=== PATIENT | male | born 1960 | race Caucasian/White ===

== ENCOUNTER 2019-08-08 08:29 | Day surgery (SDC) | payer OTHER ==
[~2019-08-08 08:29] MED LIST: Buffered Lidocaine 1% SYRIN* 1 ML/SYRINGE INTRADERM ONE; mitoMYcin 0.2 MG (0.02%) in Sterile Water for Inj* 1 ML OPHTHALMIC SCH
[2019-08-08] MEDS ORDERED: Midazolam* 1 MG/ML 2 ML VIAL (2 MG) ONE ×2 (10:38→10:57)
[2019-08-08] MEDS ORDERED: Lidocaine 1% MPF ** 5 ML VIAL ONE (11:04)
[2019-08-08] MEDS ORDERED: Povidone Iodine 5% OPTH* 30 ML BTL ONE (11:04)
[2019-08-08] MEDS ORDERED: Proparacaine 0.5% OPHTH.SOL* 15 ML BTL ONE (11:04)
[2019-08-08] MEDS ORDERED: acetaZOLAMIDE TAB* 250 MG ONE (11:04)
[2019-08-08] MEDS ORDERED: Cyclopentolate 1% OPTH.SOL* 2 ML BTL ONE (11:04)
[2019-08-08] MEDS ORDERED: Lidocaine 2% w/ EPI 1:200,000* 20 ML SDV VIAL ONE (11:04)
[2019-08-08] MEDS ORDERED: Phenylephrine OPHTH SOL 2.5%* 2 ML ONE (11:04)
[2019-08-08] MEDS ORDERED: Neomycin/Polymy/Dex OPTH.SUSP* MAXITROL 0.1% 5 ML ONE (11:04)
[2019-08-08] MEDS ORDERED: Ketorolac 0.5% OPHTH (NF) 0.5 % 5 ML BTL ONE (11:04)
[2019-08-08 11:45] VITALS: BP 111/69
[2019-08-08] MEDS ORDERED: BSS OPTH.SOL* BTL ONE (12:05)
--- NOTE | 2019-08-08 16:02 | OP ---
DATE OF OPERATION: 08/08/19 [facility] DATE OF : 62 SURGEON: Nicolas Saab M.D. PREOPERATIVE DIAGNOSIS: Cataract and glaucoma, left eye POSTOPERATIVE DIAGNOSIS: Cataract and glaucoma, left eye OPERATIVE PROCEDURE: Extracapsular cataract extraction with intraocular lens implant and iStent left. DESCRIPTION OF PROCEDURE: The patient was brought to the operating room after being given 1/2% Alcaine with epinephrine drops in the preoperative area. The eye was prepped and draped in the usual sterile fashion. Sterile drape and eyelid speculum were placed. Again, topical 1/2% Alcaine with epinephrine was given. A paracentesis incision was made at the 3 o'clock position with the No.75 blade. Clear cornea incision 2.2 x 2.2-mm was created at the 6 o'clock position starting at the anterior limbus using the 2.2-mm keratome. The anterior chamber was irrigated with 0.4 mL of 1% non-preservative intracameral lidocaine and filled with DisCoVisc. A capsulorrhexis was completed using the cystotome and the Utrata forceps. Hydrodissection was performed with balanced salt solution. The lens nucleus was removed with the Phacoemulsification handpiece without incident. Cortex was removed with the irrigation-aspiration handpiece. The capsular bag was re-inflated using DisCoVisc and an [id number] 13 implant was inserted with the shooter followed by an iStent inject inserted at the 8 o'clock and 10 o'clock position with each shooter. The irrigation- aspiration handpiece was used to remove all residual DisCoVisc. The eye was refilled with balanced salt solution and the wound checked and found to be watertight. Topical Maxitrol drops were given. [id number]/[facility] #: [id number] MTDD
== END 2019-08-08 11:36 | disposition home or self-care (01) ==
LOC: OREAST 08:29
PROVIDERS: ATTEND Specialist
DX: H25.812 Combined forms of age-related cataract, left eye (principal); H40.1122 Primary open-angle glaucoma, left eye, moderate stage; H44.23 Degenerative myopia, bilateral; E11.9 Type 2 diabetes mellitus without complications; Z79.84 Long term (current) use of oral hypoglycemic drugs
CPT/HCPCS: A9270-GY; C1783; J2250; J9280; V2632

== ENCOUNTER 2019-10-03 11:25 | Day surgery (SDC) | payer OTHER ==
[~2019-10-03 11:25] MED LIST changes: +Cyclopentolate 1% OPTH.SOL* 2 ML BTL ONE; +Ketorolac 0.5% OPHTH (NF) 0.5 % 5 ML BTL ONE; +Lidocaine 1% MPF ** 5 ML VIAL ONE; +Lidocaine 2% w/ EPI 1:200,000* 20 ML SDV VIAL ONE; +Neomycin/Polymy/Dex OPTH.SUSP* MAXITROL 0.1% 5 ML ONE; +Phenylephrine OPHTH SOL 2.5%* 2 ML ONE; +Povidone Iodine 5% OPTH* 30 ML BTL ONE; +Proparacaine 0.5% OPHTH.SOL* 15 ML BTL ONE; +acetaZOLAMIDE TAB* 250 MG ONE; -mitoMYcin 0.2 MG (0.02%) in Sterile Water for Inj* 1 ML OPHTHALMIC SCH
[2019-10-03] MEDS ORDERED: Midazolam* 1 MG/ML 2 ML VIAL (2 MG) ONE (14:40)
[2019-10-03 16:01] VITALS: BP 127/78
--- NOTE | 2019-10-03 21:16 | OP ---
DATE OF OPERATION: 10/03/19 [facility] DATE OF : 62 SURGEON: Nicolas Saab MD PREOPERATIVE DIAGNOSIS: Cataract right eye. POSTOPERATIVE DIAGNOSIS: Cataract right eye. OPERATIVE PROCEDURE: Extracapsular cataract extraction with intraocular lens implant right eye. DESCRIPTION OF PROCEDURE: The patient was brought to the operating room after being given 1/2% Alcaine with epinephrine drops in the preoperative area. The eye was prepped and draped in the usual sterile fashion. Sterile drape and eyelid speculum were placed. Again, topical 1/2% Alcaine with epinephrine was given. A paracentesis incision was made at the 9 o'clock position with the No.75 blade. Clear cornea incision 2.2 x 2.2-mm was created at the 12 o'clock position starting at the anterior limbus using the 2.2-mm keratome. The anterior chamber was irrigated with 0.4 mL of 1% non-preservative intracameral lidocaine and filled with DisCoVisc. A capsulorrhexis was completed using the cystotome and the Utrata forceps. Hydrodissection was performed with balanced salt solution. The lens nucleus was removed with the Phacoemulsification handpiece without incident. Cortex was removed with the irrigation-aspiration handpiece. The capsular bag was re-inflated using DisCoVisc and an SN60WF 13.5 implant was inserted with the shooter. The irrigation-aspiration handpiece was used to remove all residual DisCoVisc. The eye was refilled with balanced salt solution and the wound checked and found to be watertight. Topical Maxitrol drops were given. [id number]/[facility] #: [id number] [facility]
== END 2019-10-03 15:28 | disposition home or self-care (01) ==
LOC: OREAST 11:25
PROVIDERS: ATTEND Specialist
DX: H25.811 Combined forms of age-related cataract, right eye (principal); H44.23 Degenerative myopia, bilateral; H40.1122 Primary open-angle glaucoma, left eye, moderate stage; E11.9 Type 2 diabetes mellitus without complications; Z79.84 Long term (current) use of oral hypoglycemic drugs; E78.00 Pure hypercholesterolemia, unspecified
CPT/HCPCS: A9270-GY; J2250; V2632